=== PATIENT | male | born 1960 | race Caucasian/White ===

== ENCOUNTER 2021-08-26 20:50 | Observation (INO) ==
[2021-08-26] MEDS ORDERED: ceFAZolin 2,000 MG/50 ML DUPLEX IV ONE (21:12)
[2021-08-26] MEDS ORDERED: DIPHTHERIA/TETANUS ADULT VACCINE 0.5 ML SYRINGE IM ONE (21:12)
[2021-08-26 21:45] LABS: Basophils % 0.3 % (0.0-0.8); Eosinophils # 0.2 10*3/uL (0.0-0.87); Eosinophils % 2.7 % (0.00-10.9); Hematocrit 43.5 VOL% (42.0-52.0); Hemoglobin 14.5 GM/DL (14.0-18.0); Immature Granulocytes % 0.3 %; Immature Granulocytes Absolute 0.02 #; Lymphocytes % 29.7 % (21.2-54.2); Mean Corpuscular HGB Conc 33.3 GM/DL (32-36); Mean Platelet Volume 9.8 FL (9.6-12.0); Monocytes # 0.4 10*3/uL (0.11-0.8); Monocytes % 6.3 % (1.7-12.7); Neutrophils % 60.7 % (38.7-73.9); Platelet Count 204 T/CUMM (130-400); Red Blood Count 4.89 MC/CUMM (3.8-5.5); White Blood Count 6.7 T/CUMM (4-12)
[2021-08-26 21:58] LABS: PT Patient Result 11.1 SECS (10.5-12.0); Partial Thromboplastin Time 27.3 SECS (23.7-32.9)
[2021-08-26 22:57] LABS: Bilirubin,Total 0.4 MG/DL (0.20-1.00); Calcium 9.3 MG/DL (8.5-10.1); Osmolality,Calculated 284.5 MOS/KG (273-304); Potassium 3.7 MMOL/L (3.5-5.1); Total Protein 7.3 G/DL (6.4-8.2)
[2021-08-26] MEDS ORDERED: CROTALIDAE SNAKE ANTIVENOM IV STA (23:02)
[2021-08-26] MEDS ORDERED: SODIUM CHLORIDE IV STA (23:02)
[2021-08-26] MEDS ORDERED: ONDANSETRON 4 MG/2 ML VIAL IV PRN (23:31)
[2021-08-26] MEDS ORDERED: ALBUTEROL 2.5 MG/3 ML NEB RESP TX PRN (23:31)
[2021-08-27] MEDS ORDERED: DEXTROSE 10% 250 ML BAG IV PRN ×2 (00:31→07:37)
[2021-08-27 00:45] LABS: Basophils % 0.5 % (0.0-0.8); Eosinophils # 0.2 10*3/uL (0.0-0.87); Eosinophils % 2.9 % (0.00-10.9); Hematocrit 43.9 VOL% (42.0-52.0); Hemoglobin 14.8 GM/DL (14.0-18.0); Immature Granulocytes % 0.3 %; Immature Granulocytes Absolute 0.02 #; Lymphocytes % 32.2 % (21.2-54.2); Mean Corpuscular HGB Conc 33.7 GM/DL (32-36); Mean Corpuscular Volume 87.3 FL (87-102); Mean Platelet Volume 9.9 FL (9.6-12.0); Monocytes # 0.4 10*3/uL (0.11-0.8); Monocytes % 6.7 % (1.7-12.7); Neutrophils % 57.4 % (38.7-73.9); Platelet Count 193 T/CUMM (130-400); Red Blood Count 5.03 MC/CUMM (3.8-5.5); White Blood Count 6.3 T/CUMM (4-12)
[2021-08-27 00:56] LABS: PT Patient Result 11.1 SECS (10.5-12.0)
[2021-08-27] MEDS: SODIUM CHLORIDE 0.9% 1,000 ML IV SCH ×2 (01:20→13:24)
[2021-08-27 01:43] LABS: Albumin 4.1 G/DL (3.4-5.0); Bilirubin,Total 0.4 MG/DL (0.20-1.00); Calcium 9.4 MG/DL (8.5-10.1); Osmolality,Calculated 283.4 MOS/KG (273-304); Potassium 3.5 MMOL/L (3.5-5.1); Total Protein 7.2 G/DL (6.4-8.2)
[2021-08-27 05:04] LABS: Basophils % 0.5 % (0.0-0.8); Eosinophils # 0.2 10*3/uL (0.0-0.87); Eosinophils % 2.8 % (0.00-10.9); Hematocrit 43.6 VOL% (42.0-52.0); Hemoglobin 14.5 GM/DL (14.0-18.0); Immature Granulocytes % 0.3 %; Immature Granulocytes Absolute 0.02 #; Lymphocytes # 1.7 10*3/uL (1.4-4.0); Lymphocytes % 27.3 % (21.2-54.2); Mean Corpuscular HGB Conc 33.3 GM/DL (32-36); Mean Corpuscular Volume 88.4 FL (87-102); Mean Platelet Volume 9.7 FL (9.6-12.0); Monocytes # 0.4 10*3/uL (0.11-0.8); Monocytes % 6.7 % (1.7-12.7); Neutrophils % 62.4 % (38.7-73.9); Platelet Count 174 T/CUMM (130-400); Red Blood Count 4.93 MC/CUMM (3.8-5.5); Red Cell Distribution Width 12.7 % (9.3-17.3); White Blood Count 6.4 T/CUMM (4-12)
[2021-08-27 05:13] LABS: INR 1.1; PT Patient Result 12.1 SECS (10.5-12.0)
[2021-08-27 05:27] LABS: Albumin 3.7 G/DL (3.4-5.0); Bilirubin,Total 0.5 MG/DL (0.20-1.00); Calcium 8.9 MG/DL (8.5-10.1); Osmolality,Calculated 284.3 MOS/KG (273-304); Potassium 3.4 MMOL/L (3.5-5.1); Total Protein 6.8 G/DL (6.4-8.2)
[2021-08-27] MEDS ORDERED: GLUCAGON 1 MG VIAL IM PRN (07:35)
[2021-08-27] MEDS: INSULIN LISPRO 100 UNIT/ML SUBCUT SCH ×4 (08:55→21:00)
[2021-08-27] MEDS ORDERED: carvediloL 12.5 MG TABLET PO SCH (09:00)
[2021-08-27] MEDS: PANTOPRAZOLE 40 MG TABLET PO SCH (09:44)
[2021-08-27] MEDS: SERTRALINE 50 MG TABLET PO SCH (09:44)
[2021-08-27] MEDS: EZETIMIBE 10 MG TABLET PO SCH (09:44)
[2021-08-27] MEDS: LOSARTAN 50 MG TABLET PO SCH (09:44)
[2021-08-27] MEDS: TAMSULOSIN 0.4 MG CAPSULE PO SCH (09:44)
[2021-08-27] MEDS: GLIMEPIRIDE 4 MG TABLET PO SCH (09:46)
[2021-08-27] MEDS ORDERED: POTASSIUM CHLORIDE 20 MEQ TABLET PO ONE (10:01)
[2021-08-27] MEDS: INSULIN GLARGINE 100 UNIT/ML SUBCUT SCH (10:14)
[2021-08-27] MEDS: METHOCARBAMOL 750 MG TABLET PO SCH (21:00)
[2021-08-27] MEDS: carvediloL 6.25 MG TABLET PO SCH (21:00)
[2021-08-28 05:47] LABS: Calcium 9.3 MG/DL (8.5-10.1); Osmolality,Calculated 285.5 MOS/KG (273-304); Potassium 4.5 MMOL/L (3.5-5.1); Risk Ratio 8.59; VLDL Cholesterol 51.4 MG/DL
[2021-08-28 05:48] LABS: Basophils % 0.4 % (0.0-0.8); Eosinophils # 0.2 10*3/uL (0.0-0.87); Eosinophils % 3.4 % (0.00-10.9); Hematocrit 43.7 VOL% (42.0-52.0); Hemoglobin 14.2 GM/DL (14.0-18.0); Immature Granulocytes % 0.4 %; Immature Granulocytes Absolute 0.02 #; Lymphocytes # 1.5 10*3/uL (1.4-4.0); Lymphocytes % 32.8 % (21.2-54.2); Mean Corpuscular HGB Conc 32.5 GM/DL (32-36); Mean Corpuscular Volume 90.3 FL (87-102); Monocytes # 0.4 10*3/uL (0.11-0.8); Monocytes % 8.1 % (1.7-12.7); Neutrophils % 54.9 % (38.7-73.9); Platelet Count 189 T/CUMM (130-400); Red Blood Count 4.84 MC/CUMM (3.8-5.5); Red Cell Distribution Width 12.8 % (9.3-17.3); White Blood Count 4.7 T/CUMM (4-12)
[2021-08-28 05:58] LABS: PT Patient Result 11.4 SECS (10.5-12.0); Partial Thromboplastin Time 29.3 SECS (23.7-32.9)
[2021-08-28] MEDS ORDERED: PANTOPRAZOLE 40 MG TABLET PO SCH (09:00)
[2021-08-28] MEDS ORDERED: allopurinoL 300 MG TABLET PO SCH (09:00)
[2021-08-28] MEDS ORDERED: CLOPIDOGREL 75 MG TABLET PO SCH (09:00)
[2021-08-28] MEDS: INSULIN LISPRO 100 UNIT/ML SUBCUT SCH (09:12)
[2021-08-28] MEDS: INSULIN GLARGINE 100 UNIT/ML SUBCUT SCH (09:12)
[2021-08-28] MEDS: carvediloL 6.25 MG TABLET PO SCH (09:13)
[2021-08-28] MEDS: SERTRALINE 50 MG TABLET PO SCH (09:13)
[2021-08-28] MEDS: METHOCARBAMOL 750 MG TABLET PO SCH (09:13)
[2021-08-28] MEDS: PANTOPRAZOLE 40 MG TABLET PO SCH (09:13)
[2021-08-28] MEDS: TAMSULOSIN 0.4 MG CAPSULE PO SCH (09:13)
[2021-08-28] MEDS: GLIMEPIRIDE 4 MG TABLET PO SCH (09:13)
[2021-08-28] MEDS: LOSARTAN 50 MG TABLET PO SCH (09:13)
[2021-08-28] MEDS: EZETIMIBE 10 MG TABLET PO SCH (09:14)
[2021-08-28 09:55] VITALS: BP 146/72
== END 2021-08-28 11:14 | disposition home or self-care (01) ==
LOC: N.ED 20:50 → N.CC 23:31 → SUATTDRO 23:31 → INTOOBSV 23:31 → N.CC 08-27 00:48 → N.5E 08-27 18:26
PROVIDERS: ADMIT Family Medicine; ATTEND Internal Medicine